=== PATIENT | female | born 1930 | race Caucasian/White ===

== ENCOUNTER 2021-04-06 11:53 | Emergency (ER) | payer OTHER ==
[~2021-04-06] VITALS: Ht 162.6 cm; Wt 61.2 kg
[2021-04-06 12:00] VITALS: BP_SYST 125
--- NOTE | 2021-04-06 12:00 | NUR ---
Placed in room 7 . Placed on hostel parent, blood pressure machine and pulse oximeter. To gown for exam. Side rails up.
--- NOTE | 2021-04-06 12:05 | NUR ---
ER DR. GARCIA AT THE BEDSIDE EXAMINING PT
--- NOTE | 2021-04-06 12:11 | NUR ---
# 20 gauge angiocath placed to RAC. Use of asceptic technique. Opsite placed over site. Blood return noted. Flushed with 10 cc of normal saline. No evidence of infiltration noted. Patient tolerated well.
[2021-04-06] MEDS ORDERED: DEXTROSE 50% JECT 50 ML DISP.SYRIN IVP ONE (12:15)
--- NOTE | 2021-04-06 12:15 | NUR ---
PT BIBA FROM HOME, PER DAUGHTER PT SEEMED MORE CONFUSED THAN NORMAL AND SHAKING SO SHE CALLED 911. PT IS A DIABETIC AND ADMINISTERS HER OWN INSULIN AT HOME. UPON ARRIVAL PT'S BG IS 57. PT IS [place], AAOX3, VSS.
--- NOTE | 2021-04-06 13:20 | NUR ---
DAUGHTER AT THE BEDSIDE
--- NOTE | 2021-04-06 13:29 | NUR ---
LUNCH TRAY PROVIDED TO PT, ENCOURAGED TO EAT
--- NOTE | 2021-04-06 14:00 | NUR ---
ER DR. GARCIA AT THE BEDSIDE FOR RIGHT EJ PLACEMENT, BLOOD DRAWN FROM SITE, PT TOLERATED WELL.
[2021-04-06 14:52] LABS: BASOPHILS % (AUTO) 0.1 % (0.0-2.0); HEMATOCRIT 29.7 % (36-48); LYMPHOCYTES # (AUTO) 0.5 K/uL (1.0-5.5); LYMPHOCYTES % (AUTO) 9.3 % (20.5-51.5); MEAN CORPUSCULAR HEMOGLOBIN 34 pg (27-31); MEAN CORPUSCULAR HGB CONC 34 % (32-36); MEAN CORPUSCULAR VOLUME 102 fL (79.0-98.0); MONOCYTES # (AUTO) 0.2 K/uL (0.0-1.0); MONOCYTES % (AUTO) 4.2 % (1.7-9.3); NEUTROPHILS # (AUTO) 4.3 K/uL (1.8-7.7); NEUTROPHILS % (AUTO) 86.4 % (40.0-70.0); PLATELET COUNT (AUTO) 136 K/uL (130-430); RED BLOOD CELL COUNT(AUTO) 2.91 MIL/uL (4.2-6.2); RED CELL DISTRIBUTION WIDTH 20.5 % (9.0-15.0)
--- NOTE | 2021-04-06 15:00 | NUR ---
Patient resting quietly. No acute distress noted. Vital signs within normal range.
[2021-04-06 15:08] LABS: BILIRUBIN,URINE NEGATIVE (NEGATIVE); BLOOD, URINE NEGATIVE (NEGATIVE); CLARITY/URINE CLEAR (CLEAR); COLOR,URINE YELLOW (YELLOW); GLUCOSE,URINE NEGATIVE (NEGATIVE); KETONES,URINE NEGATIVE (NEGATIVE); LEUKOCYTE ESTERASE ,URINE NEGATIVE (NEGATIVE); NITRITE, URINE NEGATIVE (NEGATIVE); PH,URINE 5.5 (5.0-8.0); PROTEIN URINE NEGATIVE (NEGATIVE); UROBILINOGEN,URINE 0.2 (0.2-1.0)
--- NOTE | 2021-04-06 15:09 | NUR ---
Change Management Specialist CASTING OPERATOR HELPER received a request for adoption social worker consult from ED via phone. CASTING OPERATOR HELPER met with patients daughter Mirna Torres who requested care resources for her mother and provided her a business card. According to daughter, patient resides with her other daughter in [place], [place] but she is concerned about patients ability to care for herself including bathing and medication compliance and would need realtime court reporter care. Daughter also shared patient may be receiving In Home Supportive Services in [place] but stated patient would now be staying in [place] with her. CASTING OPERATOR HELPER provided daughter and patient with adoption social worker packet containing senior resources and New Lifestyles Booklet as requested. CASTING OPERATOR HELPER encouraged daughter to contact her sister to obtain information related to patients current services and/or contact [facility] to request [facility]. CASTING OPERATOR HELPER also informed daughter that if patient is admitted for 3 or more days, she would be eligible for a SNF, at which time she could again request support from Case Management (as learned from consultation with Director of Case Management Sammy Coyle).
[2021-04-06 15:19] LABS: BARBITURATE, URINE NEGATIVE (NEG <=200); BENZODIAZEPINE, URINE NEGATIVE (NEG <=150); CANNABINOID, URINE NEGATIVE (NEG <=50); COCAINE, URINE NEGATIVE (NEG <=150); METHAMPHETAMINES SCREEN,URINE NEGATIVE (NEG <=500); OPIATE, URINE NEGATIVE (NEG <=100); PHENCYCLIDINE SCREEN,URINE NEGATIVE (NEG <=25); UR TRICYCLIC ANTIDEPRESSANTS NEGATIVE (NEG <=300); URINE AMPHETAMINE NEGATIVE (NEG <=500); URINE METHADONE NEGATIVE (NEG <=200); URINE OXYCODONE SCREEN NEGATIVE (NEG <=100); URINE PROPOXYPHENE SCREEN NEGATIVE (NEG <=300)
[2021-04-06 15:22] LABS: ANION GAP 12 (5-15); C-REACTIVE PROTEIN QUANT 4.4 mg/dL (0-0.5); CALCIUM 7.2 mg/dL (8.4-11.0); CHLORIDE 98 mmol/L (98-107); CREATININE 0.72 mg/dL (0.55-1.30); GLUCOSE 143 mg/dL (70-99); POTASSIUM 3.2 mmol/L (3.5-5.1); SODIUM SERUM 134 mmol/L (136-145); UREA NITROGEN, BLOOD 12 mg/dL (8-21)
[2021-04-06 15:27] LABS: ALANINE AMINOTRANSFERASE 22 U/L (12-78); ALBUMIN 1.9 g/dL (3.4-4.8); ASPARTATE AMINOTRANSFERASE 42 U/L (10-37); TOTAL BILIRUBIN 0.8 mg/dL (0.0-1.0)
[2021-04-06 15:29] LABS: ACETAMINOPHEN < 1 ug/mL (1-30); ALCOHOL, BLOOD < 3 mg/dL (<10)
[2021-04-06 15:57] LABS: ACETONE, SERUM TRACE (NEGATIVE)
--- NOTE | 2021-04-06 16:00 | NUR ---
Patient resting quietly. No acute distress noted. Vital signs within normal range.
--- NOTE | 2021-04-06 17:00 | NUR ---
Patient resting quietly. No acute distress noted. Vital signs within normal range.
--- NOTE | 2021-04-06 17:56 | NUR ---
DINNER TRAY PROVIDED TO PT
[2021-04-06 18:46] VITALS: BP_SYST 137
[2021-04-07] MEDS ORDERED: LEVO25TA7 PO (18:51)
[2021-04-07] MEDS ORDERED: CARB100T PO (18:52)
[2021-04-07] MEDS ORDERED: METO25TA3 PO ×2 (18:53→20:26)
[2021-04-07] MEDS ORDERED: LIP40 PO (18:57)
[2021-04-07] MEDS ORDERED: BUME1TAB8 PO ×2 (18:58→20:26)
[2021-04-07] MEDS ORDERED: PIOG30TA70 PO (18:59)
[2021-04-07] MEDS ORDERED: SACU1TAB PO ×2 (19:00→20:26)
[2021-04-07] MEDS ORDERED: VALA500T PO ×2 (19:00→20:26)
[2021-04-07] MEDS ORDERED: CARB100T50 PO (20:26)
[2021-04-07] MEDS ORDERED: LIP20 PO (20:26)
[2021-04-07] MEDS ORDERED: SYN50 PO (20:26)
== END 2021-04-06 18:47 | disposition home or self-care (01) ==
LOC: SED 11:53
DX: E16.2 Hypoglycemia, unspecified (principal); Z79.899 Other long term (current) drug therapy
CPT/HCPCS: 36415; 70450; 71045; 80053; 80307; 81003; 82009; 82140; 82962; 83605; 85025; 86140; 87040; 93005; 96374; 99285; G0480; G0481; G0482

== ENCOUNTER 2021-04-07 18:20 | Inpatient (IN) | payer OTHER, SELFPAY ==
[~2021-04-07] VITALS: Ht 172.7 cm; Wt 63.5 kg
--- NOTE | 2021-04-07 18:27 | NUR ---
Pt to bed 6. Per medics, pt had low glucose so aral glucose 2mg was given. Pt was slightly altered per medics. Now pt is A&Ox4. Skin intact. No pain. Denies n/v. VSS. No s.s of distress. Bed in lowest position.
[2021-04-07 18:30] VITALS: BP_SYST 160
--- NOTE | 2021-04-07 18:33 | NUR ---
Dr. Payton at bedside. Food and juice provided to pt. HOB elevated.
--- NOTE | 2021-04-07 18:37 | NUR ---
perinatal technician at bedside drawing blood. Pt has no c/o.
--- NOTE | 2021-04-07 18:49 | NUR ---
EKG being done at bedside by framing manager
[2021-04-07] MEDS ORDERED: LEVO25TA7 PO (18:51)
[2021-04-07] MEDS ORDERED: CARB100T PO (18:52)
[2021-04-07] MEDS ORDERED: METO25TA3 PO ×2 (18:53→20:26)
[2021-04-07] MEDS ORDERED: LIP40 PO (18:57)
[2021-04-07] MEDS ORDERED: BUME1TAB8 PO ×2 (18:58→20:26)
[2021-04-07] MEDS ORDERED: PIOG30TA70 PO (18:59)
[2021-04-07] MEDS ORDERED: SACU1TAB PO ×2 (19:00→20:26)
[2021-04-07] MEDS ORDERED: VALA500T PO ×2 (19:00→20:26)
--- NOTE | 2021-04-07 19:01 | NUR ---
Medication reconciliation completed.
[2021-04-07 19:04] LABS: BASOPHILS % (AUTO) 0.4 % (0.0-2.0); EOSINOPHILS % (AUTO) 0.3 % (0.0-4.0); HEMATOCRIT 27.3 % (36-48); HEMOGLOBIN 9.2 g/dL (12.0-16.0); LYMPHOCYTES # (AUTO) 1.6 K/uL (1.0-5.5); LYMPHOCYTES % (AUTO) 30.2 % (20.5-51.5); MEAN CORPUSCULAR HEMOGLOBIN 34 pg (27-31); MEAN CORPUSCULAR HGB CONC 34 % (32-36); MEAN CORPUSCULAR VOLUME 102 fL (79.0-98.0); MONOCYTES # (AUTO) 0.5 K/uL (0.0-1.0); NEUTROPHILS # (AUTO) 3.1 K/uL (1.8-7.7); NEUTROPHILS % (AUTO) 60.1 % (40.0-70.0); PLATELET COUNT (AUTO) 133 K/uL (130-430); RED BLOOD CELL COUNT(AUTO) 2.67 MIL/uL (4.2-6.2); RED CELL DISTRIBUTION WIDTH 20.4 % (9.0-15.0); WHITE BLOOD COUNT (AUTO) 5.2 K/uL (4.8-10.8)
[2021-04-07 19:10] LABS: ANION GAP 10 (5-15); CALCIUM 7.2 mg/dL (8.4-11.0); CHLORIDE 97 mmol/L (98-107); CREATININE 0.93 mg/dL (0.55-1.30); GLUCOSE 57 mg/dL (70-99); SODIUM SERUM 134 mmol/L (136-145); UREA NITROGEN, BLOOD 15 mg/dL (8-21)
[2021-04-07 19:22] LABS: POTASSIUM 2.6 mmol/L (3.5-5.1)
[2021-04-07 19:24] LABS: ALANINE AMINOTRANSFERASE 24 U/L (12-78); ASPARTATE AMINOTRANSFERASE 42 U/L (10-37); TOTAL BILIRUBIN 0.4 mg/dL (0.0-1.0)
[2021-04-07] MEDS ORDERED: POTASSIUM CHLORIDE 20 MEQ/PKT PACKET PO ONE (19:45)
[2021-04-07 19:52] LABS: CKMB RELATIVE INDEX 2.5 (0.0-2.9); CREATINE KINASE MB 6.6 ng/mL (0-3.6)
[2021-04-07] MEDS ORDERED: SYN50 PO (20:26)
[2021-04-07] MEDS ORDERED: LIP20 PO (20:26)
[2021-04-07] MEDS ORDERED: CARB100T50 PO (20:26)
[2021-04-07] MEDS: SACUBITRIL/VALSARTAN 24 MG-26 MG 1 TABLET PO SCH (21:00)
[2021-04-07] MEDS ORDERED: D5LR 500 ML IV ONE (21:15)
[2021-04-07] MEDS ORDERED: DEXTROSE 50% JECT 50 ML DISP.SYRIN IVP PRN (21:15)
[2021-04-07] MEDS ORDERED: ACETAMINOPHEN 325 MG TABLET PO PRN (21:30)
[2021-04-07] MEDS: POTASSIUM CHLORIDE 20 MEQ TAB.PRT.SR PO SCH (21:46)
--- NOTE | 2021-04-07 21:58 | NUR ---
IV R EJ OBTAINED AT THIS TIME BY ER . PATIENT PREPPED FOR BEDSIDE REPORT AT 112A
--- NOTE | 2021-04-07 22:50 | NUR ---
ADMISSION NOTE Received patient from ER via gurney. Patient admitted with diagnosis of hypoglycemia. Patient is awake, alert, oriented X 3. Patient oriented to hospital room, call light, toileting, pain management and safety-teach back done. Patient informed that their room number is 112A. Personal belongings checked and Belongings List documented. Call light within reach.
[2021-04-07 22:52] VITALS: BP_SYST 125
[2021-04-08] VITALS (8 sets, daily range): BP systolic 101–147
--- NOTE | 2021-04-08 | NUR ---
ROUNDS PATIENT SLEEPING IN BED, NO S/S OF ACUTE DISTRESS, CALL LIGHT WITHIN REACH, BED IN LOWEST POSITION, FALL AND SAFETY CHECKS IN PLACE.
--- NOTE | 2021-04-08 03:30 | NUR ---
ROUNDS PATIENT SLEEPING IN BED, CALL LIGHT WITHIN REACH, BED IN LOWEST POSITION, FALL AND SAFETY CHECKS IN PLACE.
[2021-04-08] MEDS: INSULIN REGULAR, HUMAN 100 UNITS/ML, 10 ML VIAL (humuLIN R) SUBCUT PRN ×4 (06:08→21:13)
--- NOTE | 2021-04-08 07:02 | NUR ---
CLOSING NOTE PATIENT AWAKE RESTING IN BED, NO S/S OF ACUTE DISTRESS, IV SITE INTACT AND PATENT WITH FLUIDS RUNNING AT ORDERED RATE, FALL AND SAFETY CHECKS IN PLACE, BED IN LOWEST POSITION WITH BED ALARM ON, CALL LIGHT WITH IN REACH, ALL NEEDS MET THROUGHOUT SHIFT.
[2021-04-08 07:46] LABS: ALANINE AMINOTRANSFERASE 21 U/L (12-78); ALBUMIN 1.8 g/dL (3.4-4.8); ANION GAP 8 (5-15); ASPARTATE AMINOTRANSFERASE 37 U/L (10-37); CHLORIDE 99 mmol/L (98-107); CREATININE 0.78 mg/dL (0.55-1.30); GLUCOSE 221 mg/dL (70-99); PHOSPHORUS 3.2 mg/dL (2.7-4.5); POTASSIUM 3.5 mmol/L (3.5-5.1); SODIUM SERUM 133 mmol/L (136-145); TOTAL BILIRUBIN 0.5 mg/dL (0.0-1.0); TOTAL IRON BIND. CAPACITY 126 ug/dL (250-450); UREA NITROGEN, BLOOD 14 mg/dL (8-21)
[2021-04-08 07:55] LABS: BASOPHILS % (AUTO) 0.5 % (0.0-2.0); EOSINOPHILS % (AUTO) 0.6 % (0.0-4.0); HEMOGLOBIN 8.8 g/dL (12.0-16.0); LYMPHOCYTES # (AUTO) 1.1 K/uL (1.0-5.5); LYMPHOCYTES % (AUTO) 26.3 % (20.5-51.5); MEAN CORPUSCULAR HEMOGLOBIN 34 pg (27-31); MEAN CORPUSCULAR HGB CONC 34 % (32-36); MEAN CORPUSCULAR VOLUME 102 fL (79.0-98.0); MONOCYTES # (AUTO) 0.4 K/uL (0.0-1.0); MONOCYTES % (AUTO) 8.8 % (1.7-9.3); NEUTROPHILS # (AUTO) 2.6 K/uL (1.8-7.7); NEUTROPHILS % (AUTO) 63.8 % (40.0-70.0); PLATELET COUNT (AUTO) 118 K/uL (130-430); RED BLOOD CELL COUNT(AUTO) 2.55 MIL/uL (4.2-6.2); RED CELL DISTRIBUTION WIDTH 20.2 % (9.0-15.0); RETICULOCYTE COUNT 1.5 % (0.5-1.5); WHITE BLOOD COUNT (AUTO) 4.1 K/uL (4.8-10.8)
[2021-04-08] MEDS: POTASSIUM CHLORIDE 20 MEQ TAB.PRT.SR PO SCH ×2 (08:57→21:15)
[2021-04-08] MEDS: BUMETANIDE 1 MG TABLET PO SCH (08:57)
[2021-04-08] MEDS: LEVOTHYROXINE SODIUM 0.025 MG TABLET PO SCH (08:58)
[2021-04-08] MEDS: ATORVASTATIN 20 MG TABLET PO SCH (08:58)
[2021-04-08] MEDS: valACYclovir HCL 500 MG TABLET PO SCH (08:59)
[2021-04-08] MEDS: METOPROLOL SUCCINATE 25 MG TAB.SR.24H (TOPROL XL) PO SCH (08:59)
[2021-04-08] MEDS: SACUBITRIL/VALSARTAN 24 MG-26 MG 1 TABLET PO SCH ×2 (09:00→21:14)
--- NOTE | 2021-04-08 12:06 | NUR ---
LEFT MESSAGE TO DAUGHTER JOSH DR ANDREA CALLED THE DAUGHTER JOSH AND GAVE A DETAIL INFORMATION REGARDING PATIENT UPDATE IN HOSPITAL.
[2021-04-08] MEDS ORDERED: CHOLECALCIFEROL (VITAMIN D3) 2,000 UNIT TABLET PO ONE (12:30)
[2021-04-08] MEDS ORDERED: MAGNESIUM SULFATE/D5W 100 ML IV ONE (12:30)
[2021-04-08 14:46] LABS: BILIRUBIN,URINE NEGATIVE (NEGATIVE); BLOOD, URINE NEGATIVE (NEGATIVE); CLARITY/URINE CLEAR (CLEAR); COLOR,URINE YELLOW (YELLOW); GLUCOSE,URINE TRACE (NEGATIVE); KETONES,URINE NEGATIVE (NEGATIVE); LEUKOCYTE ESTERASE ,URINE NEGATIVE (NEGATIVE); NITRITE, URINE NEGATIVE (NEGATIVE); PROTEIN URINE NEGATIVE (NEGATIVE); UROBILINOGEN,URINE 0.2 (0.2-1.0)
--- NOTE | 2021-04-08 15:32 | NUR ---
PT 'S BLOOD CULTURE ON 04/06 CAME BACK POSITIVE FOR GRAM POS COCCI IN [place], DR ANDREA MADE AWARE AND GAVE NEW ORDER FOR ABX.
[2021-04-08] MEDS: LINEZOLID 300 ML IV SCH (16:32)
--- NOTE | 2021-04-08 19:30 | NUR ---
OPENING NOTE PATIENT AWAKE RESTING IN BED, NO S/S OF ACUTE DISTRESS, IV SITE INTACT AND PATENT, FALL AND SAFETY CHECKS IN PLACE, BED IN LOWEST POSITION WITH BED ALARM ON, CALL LIGHT WITH IN REACH
--- NOTE | 2021-04-08 19:32 | NUR ---
PT HAS BEEN STABLE, ASSISTED TO BATHROOM. PT ABLE TO AMBULATE BUT NEEDS ASSIST AND FALL RISK. ENDORSED TO NIGHT RN.
--- NOTE | 2021-04-09 | NUR ---
ROUNDS PATIENT SLEEPING IN BED, NO S/S OF ACUTE DISTRESS, CALL LIGHT WITHIN REACH, BED IN LOWEST POSITION, FALL AND SAFETY CHECKS IN PLACE.
[2021-04-09 00:54] VITALS: BP_SYST 109
--- NOTE | 2021-04-09 03:30 | NUR ---
ROUNDS PATIENT SLEEPING IN BED, FALL AND SAFETY CHECKS IN PLACE, CALL LIGHT WITHIN REACH.
[2021-04-09] MEDS: LINEZOLID 300 ML IV SCH ×2 (04:02→17:02)
--- NOTE | 2021-04-09 04:29 | NUR ---
CONSULTATION PAGED REASON FOR CONSULTATION: (+) blood culture WAS CONSULT CALLED? Y PERSON WHO WAS NOTIFIED: Sloane CONSULTING PHYSICIAN: Dr. Anaya REQUESTING PHYSICIAN: Dr. Dexter
[2021-04-09 06:58] LABS: BASOPHILS % (AUTO) 0.6 % (0.0-2.0); EOSINOPHILS % (AUTO) 0.7 % (0.0-4.0); HEMATOCRIT 24.6 % (36-48); HEMOGLOBIN 8.3 g/dL (12.0-16.0); LYMPHOCYTES # (AUTO) 1.1 K/uL (1.0-5.5); LYMPHOCYTES % (AUTO) 29.7 % (20.5-51.5); MEAN CORPUSCULAR HEMOGLOBIN 35 pg (27-31); MEAN CORPUSCULAR HGB CONC 34 % (32-36); MEAN CORPUSCULAR VOLUME 102 fL (79.0-98.0); MONOCYTES # (AUTO) 0.5 K/uL (0.0-1.0); MONOCYTES % (AUTO) 12.5 % (1.7-9.3); NEUTROPHILS # (AUTO) 2.1 K/uL (1.8-7.7); NEUTROPHILS % (AUTO) 56.5 % (40.0-70.0); PLATELET COUNT (AUTO) 112 K/uL (130-430); RED BLOOD CELL COUNT(AUTO) 2.41 MIL/uL (4.2-6.2); RED CELL DISTRIBUTION WIDTH 19.7 % (9.0-15.0); WHITE BLOOD COUNT (AUTO) 3.7 K/uL (4.8-10.8)
[2021-04-09 07:08] LABS: ANION GAP 7 (5-15); CHLORIDE 99 mmol/L (98-107); GLUCOSE 203 mg/dL (70-99); POTASSIUM 4.1 mmol/L (3.5-5.1); SODIUM SERUM 132 mmol/L (136-145); UREA NITROGEN, BLOOD 13 mg/dL (8-21)
[2021-04-09 07:47] LABS: CALCIUM 6.8 mg/dL (8.4-11.0)
--- NOTE | 2021-04-09 07:55 | NUR ---
RN note: Page Dr. Dexter for Calcium level of 6.8
[2021-04-09 08:00] VITALS: BP_SYST 112
--- NOTE | 2021-04-09 08:00 | NUR ---
Morning notes: Pt A/Ox4 resting in bed. No s/s of respiratory or cardiac distress, R EJ IV site is clean, dry and intact. Fall and safety precautions in place, call light within reach, will continue to monitor.
[2021-04-09] MEDS ORDERED: CHOLECALCIFEROL (VITAMIN D3) 2,000 UNIT TABLET PO SCH (09:00)
[2021-04-09] MEDS ORDERED: CALCIUM GLUCONATE 1 GM in NS 100 ML IV ONE (09:15)
[2021-04-09 11:32] VITALS: BP_SYST 138
[2021-04-09] MEDS: ATORVASTATIN 20 MG TABLET PO SCH (11:50)
[2021-04-09] MEDS: POTASSIUM CHLORIDE 20 MEQ TAB.PRT.SR PO SCH ×2 (11:50→20:15)
[2021-04-09] MEDS: METOPROLOL SUCCINATE 25 MG TAB.SR.24H (TOPROL XL) PO SCH (11:51)
[2021-04-09] MEDS: LEVOTHYROXINE SODIUM 0.025 MG TABLET PO SCH (11:52)
[2021-04-09] MEDS: valACYclovir HCL 500 MG TABLET PO SCH (11:52)
[2021-04-09] MEDS: BUMETANIDE 1 MG TABLET PO SCH (11:53)
[2021-04-09] MEDS: INSULIN REGULAR, HUMAN 100 UNITS/ML, 10 ML VIAL (humuLIN R) SUBCUT PRN ×2 (12:02→20:26)
[2021-04-09] MEDS: SACUBITRIL/VALSARTAN 24 MG-26 MG 1 TABLET PO SCH ×2 (12:07→20:15)
[2021-04-09 15:37] VITALS: BP_SYST 115
--- NOTE | 2021-04-09 15:55 | NUR ---
Dietitian Recommendation Modify diet to: Mechanical Soft, CCHO-60g Please see Nutrition Assessment for full details. Addendum: 04/09/21 at [address] Amended: Links added.
--- NOTE | 2021-04-09 18:43 | NUR ---
Closing notes: Pt A/Ox4 resting in bed. No s/s of respiratory or cardiac distress, R EJ IV site is clean, dry and intact. Fall and safety precautions in place, call light within reach, will endorse to general farm hand.
[2021-04-09] MEDS: CEFTAROLINE FOSAMIL ACETATE 400 MG in NS 250 ML IV SCH (20:16)
[2021-04-09] MEDS: INSULIN GLARGINE 100 UNITS/ML 10 ML VIAL SUBCUT SCH (20:24)
[2021-04-10 00:35] VITALS: BP_SYST 120
[2021-04-10 07:14] LABS: BASOPHILS % (AUTO) 0.7 % (0.0-2.0); EOSINOPHILS % (AUTO) 0.7 % (0.0-4.0); HEMATOCRIT 24.7 % (36-48); HEMOGLOBIN 8.4 g/dL (12.0-16.0); LYMPHOCYTES % (AUTO) 21.8 % (20.5-51.5); MEAN CORPUSCULAR HEMOGLOBIN 35 pg (27-31); MEAN CORPUSCULAR HGB CONC 34 % (32-36); MEAN CORPUSCULAR VOLUME 102 fL (79.0-98.0); MONOCYTES # (AUTO) 0.6 K/uL (0.0-1.0); MONOCYTES % (AUTO) 12.7 % (1.7-9.3); NEUTROPHILS # (AUTO) 2.9 K/uL (1.8-7.7); NEUTROPHILS % (AUTO) 64.1 % (40.0-70.0); PLATELET COUNT (AUTO) 112 K/uL (130-430); RED BLOOD CELL COUNT(AUTO) 2.43 MIL/uL (4.2-6.2); RED CELL DISTRIBUTION WIDTH 19.9 % (9.0-15.0); WHITE BLOOD COUNT (AUTO) 4.6 K/uL (4.8-10.8)
[2021-04-10 08:04] LABS: ALANINE AMINOTRANSFERASE 18 U/L (12-78); ALBUMIN 1.6 g/dL (3.4-4.8); ANION GAP 6 (5-15); ASPARTATE AMINOTRANSFERASE 29 U/L (10-37); CHLORIDE 100 mmol/L (98-107); CREATININE 0.73 mg/dL (0.55-1.30); GLUCOSE 73 mg/dL (70-99); POTASSIUM 4.2 mmol/L (3.5-5.1); SODIUM SERUM 132 mmol/L (136-145); TOTAL BILIRUBIN 0.5 mg/dL (0.0-1.0); UREA NITROGEN, BLOOD 14 mg/dL (8-21)
[2021-04-10 08:12] VITALS: BP_SYST 106
[2021-04-10] MEDS: CHOLECALCIFEROL (VITAMIN D3) 5,000 UNIT TABLET PO SCH (09:25)
[2021-04-10] MEDS: POTASSIUM CHLORIDE 20 MEQ TAB.PRT.SR PO SCH ×2 (09:26→20:09)
[2021-04-10] MEDS: LEVOTHYROXINE SODIUM 0.025 MG TABLET PO SCH (09:26)
[2021-04-10] MEDS: ATORVASTATIN 20 MG TABLET PO SCH (09:26)
[2021-04-10] MEDS: SACUBITRIL/VALSARTAN 24 MG-26 MG 1 TABLET PO SCH ×2 (09:27→20:09)
[2021-04-10] MEDS: METOPROLOL SUCCINATE 25 MG TAB.SR.24H (TOPROL XL) PO SCH (09:27)
[2021-04-10] MEDS: BUMETANIDE 1 MG TABLET PO SCH (09:29)
[2021-04-10] MEDS: valACYclovir HCL 500 MG TABLET PO SCH (09:30)
[2021-04-10] MEDS: CEFTAROLINE FOSAMIL ACETATE 400 MG in NS 250 ML IV SCH ×2 (09:33→20:10)
[2021-04-10 12:00] VITALS: BP_SYST 146
[2021-04-10 16:00] VITALS: BP_SYST 143
[2021-04-10] MEDS: INSULIN REGULAR, HUMAN 100 UNITS/ML, 10 ML VIAL (humuLIN R) SUBCUT PRN (17:10)
[2021-04-10] MEDS: INSULIN GLARGINE 100 UNITS/ML 10 ML VIAL SUBCUT SCH (20:12)
[2021-04-10 21:59] VITALS: BP_SYST 124
[2021-04-11 05:15] VITALS: BP_SYST 132
--- NOTE | 2021-04-11 07:32 | NUR ---
PHYSICAL THERAPY CO-SIGN The Physical Therapy Progress Notes documented by Nsh Teacher have been reviewed. Reviewed/Co-Signed by: Jann Stephens Documentation Done by: DAMIAN CORCORAN PTA Addendum: 04/11/21 at 0732 by Jann Stephens PT Amended: Links added.
--- NOTE | 2021-04-11 08:00 | NUR ---
NOTES PATIENT AAO X 2-3 VITAL SIGNS STABLE AND AFBREILE LUNGS BILATERALLY CLEAR ABDOMEN SOFT AND NON-DISTENDED IV ACCESS ON THE RIGHT IJ ONE LUMEN SALINE LOCK PATENT AND DRY CALL LIGHT WITHIN REACH BED LOW POSITION ALARM IN LOCK BOTH ARMS SCATTERED ACCHYMOSIS NOTED NO OPEN WOUND DRAINAGE NOTED NEEDS ASSISTANCE TO THE BATHROOM ABLE TO VOID TO THE BATHROOM CONTINUE TO MONITOR
[2021-04-11 08:27] VITALS: BP_SYST 124
[2021-04-11] MEDS: POTASSIUM CHLORIDE 20 MEQ TAB.PRT.SR PO SCH ×2 (08:49→20:55)
[2021-04-11] MEDS: METOPROLOL SUCCINATE 25 MG TAB.SR.24H (TOPROL XL) PO SCH (08:51)
[2021-04-11] MEDS: LEVOTHYROXINE SODIUM 0.025 MG TABLET PO SCH (08:52)
[2021-04-11] MEDS: ATORVASTATIN 20 MG TABLET PO SCH (08:52)
[2021-04-11] MEDS: CHOLECALCIFEROL (VITAMIN D3) 5,000 UNIT TABLET PO SCH (08:52)
[2021-04-11] MEDS: CEFTAROLINE FOSAMIL ACETATE 400 MG in NS 250 ML IV SCH ×2 (08:55→20:56)
[2021-04-11] MEDS: valACYclovir HCL 500 MG TABLET PO SCH (09:00)
[2021-04-11] MEDS: BUMETANIDE 1 MG TABLET PO SCH (09:00)
[2021-04-11] MEDS: SACUBITRIL/VALSARTAN 24 MG-26 MG 1 TABLET PO SCH ×2 (09:01→20:55)
--- NOTE | 2021-04-11 09:41 | NUR ---
DUE MEDS GIVEN IV ANTIBIOTIC GIVEN.
[2021-04-11 11:35] VITALS: BP_SYST 131
--- NOTE | 2021-04-11 12:40 | NUR ---
LATEST BS 144 MG/DL. NO COVERAGE GIVEN.
[2021-04-11 15:20] VITALS: BP_SYST 126
[2021-04-11 15:33] VITALS: BP_SYST 121
--- NOTE | 2021-04-11 16:18 | NUR ---
DISCHARGE PLANNING Spoke with pt at bedside states to call asael Bradley to discuss dc planning. Per ID notes will need to cont IV abx [id number]. Called & spoke with asael Bradley, ph [phone], states discussed with Dr York & wants pt to go to short term snf then to convert to assisted care. [facility]. If those cannot then is open to other SNF's in the area that can take pt & have both short term & longitudinal float operator care. Pt get IV chemo 2wks on & 2wks off, is setting up again for CO[facility]. States spoke with both SNF's & both told her they can transport pt. If they cannot then she or other family members will be able to.
[2021-04-11] MEDS: INSULIN REGULAR, HUMAN 100 UNITS/ML, 10 ML VIAL (humuLIN R) SUBCUT PRN ×2 (17:14→21:06)
--- NOTE | 2021-04-11 19:25 | NUR ---
OPENING NOTES RECEIVED PATIENT RESTING, NO SIGNS OF RESPIRATORY DISTRESS OR PAIN AT THIS TIME. CALL LIGHT WITHIN REACH, BED ALARM ON, BED AT LOWEST POSITION, BED LOCKED. PATIENT DEMONSTRATES PROPER CALL LIGHT USAGE, PATIENT SLIGHTLY ALUTIIQ. DISCUSSED PLAN OF CARE. SAFETY, ASPIRATION, RESPIRATORY, AND FALL PRECAUTIONS IN PLACE. WILL CONTINUE TO MONITOR.
[2021-04-11] MEDS: INSULIN GLARGINE 100 UNITS/ML 10 ML VIAL SUBCUT SCH (21:08)
[2021-04-12 00:30] VITALS: BP_SYST 118
--- NOTE | 2021-04-12 06:41 | NUR ---
PATIENT'S BLOOD SUGAR IS 54, PATIENT STATES NO SYMPTOMS OF HYPOGLYCEMIA. PATIENT DRANK APPLE JUICE AND TOLERATED WELL. RECHECK IS 78. WILL CONTINUE TO PROVIDE SNACKS AND MONITOR.
--- NOTE | 2021-04-12 07:20 | NUR ---
CLOSING NOTES PATIENT RESTING, NO SIGNS OF RESPIRATORY DISTRESS OR PAIN. CALL LIGHT WITHIN REACH, BED ALARM ON, BED AT LOWEST POSITION, BED LOCKED. PATIENT DEMONSTRATED PROPER CALL LIGHT USAGE. SAFETY, ASPIRATION, RESPIRATORY, AND FALL PRECAUTIONS IN PLACE THROUGHOUT SHIFT. ALL NEEDS MET THROUGHOUT SHIFT. DR. ANDREA NOTIFIED FOR LOW BLOOD SUGAR. NO NEW ORDERS RECEIVED. WILL ENDORSE CARE TO ONCOMING SHIFT.
--- NOTE | 2021-04-12 07:32 | NUR ---
PHYSICAL THERAPY CO-SIGN The Physical Therapy Progress Notes documented by Proofer Black And White have been reviewed. Reviewed/Co-Signed by: Jann Stephens Documentation Done by: DAMIAN CORCORAN PTA Addendum: 04/12/21 at 0732 by Jann Stephens PT Amended: Links added.
[2021-04-12 08:00] VITALS: BP_SYST 129
[2021-04-12] MEDS: LEVOTHYROXINE SODIUM 0.025 MG TABLET PO SCH (10:16)
[2021-04-12] MEDS: CHOLECALCIFEROL (VITAMIN D3) 5,000 UNIT TABLET PO SCH (10:17)
[2021-04-12] MEDS: SACUBITRIL/VALSARTAN 24 MG-26 MG 1 TABLET PO SCH (10:17)
[2021-04-12] MEDS: METOPROLOL SUCCINATE 25 MG TAB.SR.24H (TOPROL XL) PO SCH (10:17)
[2021-04-12] MEDS: CEFTAROLINE FOSAMIL ACETATE 400 MG in NS 250 ML IV SCH (10:18)
[2021-04-12] MEDS: BUMETANIDE 1 MG TABLET PO SCH (10:18)
[2021-04-12] MEDS: valACYclovir HCL 500 MG TABLET PO SCH (10:18)
[2021-04-12] MEDS: POTASSIUM CHLORIDE 20 MEQ TAB.PRT.SR PO SCH (10:19)
[2021-04-12] MEDS: ATORVASTATIN 20 MG TABLET PO SCH (10:19)
[2021-04-12 11:46] VITALS: BP_SYST 114
--- NOTE | 2021-04-12 13:03 | NUR ---
Referral sent to [facility] and [facility] for placement
--- NOTE | 2021-04-12 15:24 | NUR ---
Patient accepted at [facility], room #12, number for report [phone]. Patient to transport by [facility] at 5:00 PM . Daughter Mirna agreed to transfer. DC disposition [phone]
[2021-04-12 16:06] VITALS: BP_SYST 129
--- NOTE | 2021-04-12 17:56 | NUR ---
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 Per EMR review, D/C planning to SNF; PO intake average of 68% x7 meals -- consistently fair since last RD visit 04/09; last BM x3 04/11; Paxton scale: 19, no PIs noted. Current Diet Order/Nutrition Support Mechanical Soft, Low Carb 45g x4 days Education Provided Not Indicated Pertinent Medications: VIT D3, k-dur, synthroid, bumex, SSI Pertinent Labs: 04/10: Na 132 L, BG 73 WNL, WBC 4.6 L, H/H 8.4 L/24.7 L Height (Feet) 5 feet Height (Inches) 8.00 inches Weight (Pounds) 140 pounds -- stable since 04/09 Weight (Calculated Kilograms) 63.806840 kilograms Patient Weight 63.503 kg Body Mass Index 21.28 kg/m2 %IBW 100 [place]/Adjusted Body Weight 140 lb/63.5 kg Recent Weight Change No Weight Status Appropriate Last BM Apr 08, 2021 Food Allergies No Usual Diet At Home Unable to verify Skin Integrity Comment: Paxton score 19, no skin issues identified Current % PO Fair (50-74%) Estimated Energy Expenditure (kcals/day) 3959-0100 kcal/day (30-35 kcal/kg ABW/day for cancer) Estimated Protein Required (g/day) 76-95 g/day (1.2-1.5 g/kg ABW/day for cancer) Estimated Fluid Required (l/day) 1.9-1.2 L/day (1 ml/kcal/day for maintenance) Problem/Etiology/Signs/Symptoms Increased nutritional needs r/t metabolic demands AEB estimated energy and protein needs for catabolic state due to cancer. *Ongoing Expected Outcomes/Goals Monitor tolerance of intake w/ goal of pt meeting greater than 75% of estimated needs, labs trending WNL, normal GI function, skin integrity, wt maintenance. Dietitian Recommendations Modify diet to: Mechanical Soft, CCHO-60g Consider Glucerna BID Follow Up Moderate Risk: F/U in 3-5 days
--- NOTE | 2021-04-12 18:00 | NUR ---
Dietitian Recommendations Modify diet to: Mechanical Soft, CCHO-60g Consider Glucerna BID LP, RD Please refer to Nutrition F/U for details.
[2021-04-12 18:03] VITALS: BP_SYST 135
[2021-04-12] MEDS ORDERED: CEFEPIME 0.5 GM in D5W 50 ML IV SCH (21:00)
--- NOTE | 2021-04-13 07:03 | NUR ---
PHYSICAL THERAPY CO-SIGN The Physical Therapy Progress Notes documented by Outer Diameter Grinder have been reviewed. Reviewed/Co-Signed by: Jann Stephens Documentation Done by: DAMIAN CORCORAN PTA Addendum: 04/13/21 at 0704 by Jann Stephens PT Amended: Links added.
== END 2021-04-12 21:00 | DRG 314 ==
LOC: SED 18:20 → STU 20:31 → SMU 04-11 17:18
PROVIDERS: ADMIT Internal Medicine; ATTEND Internal Medicine
PROC: 05HP33Z Insertion of Infusion Device into Right External Jugular Vein, Percutaneous Approach (ICD-10-PCS; principal; 2021-04-07)
DX: T82.7XXA Infection and inflammatory reaction due to other cardiac and vascular devices, implants and grafts, initial encounter (principal); J69.0 Pneumonitis due to inhalation of food and vomit; E43 Unspecified severe protein-calorie malnutrition; C25.9 Malignant neoplasm of pancreas, unspecified; R78.81 Bacteremia; I48.20 Chronic atrial fibrillation, unspecified; I50.42 Chronic combined systolic (congestive) and diastolic (congestive) heart failure; D61.818 Other pancytopenia; E11.649 Type 2 diabetes mellitus with hypoglycemia without coma; E86.0 Dehydration; E78.5 Hyperlipidemia, unspecified; Z20.822 Contact with and (suspected) exposure to COVID-19; I11.0 Hypertensive heart disease with heart failure; B95.8 Unspecified staphylococcus as the cause of diseases classified elsewhere; E83.51 Hypocalcemia; E87.6 Hypokalemia; Z92.21 Personal history of antineoplastic chemotherapy; Z79.899 Other long term (current) drug therapy; Z68.21 Body mass index [BMI] 21.0-21.9, adult
CPT/HCPCS: 36415; 70450-TC; 71045; 80048; 80053; 80307; 81003; 82009; 82140; 82550; 82553; 82607; 82962; 83540; 83550; 83605; 83735; 83880; 84100; 85025; 85044; 85651-TC; 86140; 87040; 93005; 96374; 97110-GP; 97112-GP; 97116-GP; 97530-GP; 99285; G0378; G0480; G0481; G0482; J0610; J0692; J0712; J1815; J2020; J3475; J7050; J7060